=== PATIENT | female | born 1975 ===

== ENCOUNTER 2017-11-01 11:30 | Emergency (ER) | payer OTHER, SELFPAY ==
[2017-11-01 11:39] VITALS: O2SAT 98
[2017-11-01 11:42] VITALS: BP 143/80; PULSE 65; RESP 16; TEMP 98.6
[2017-11-01] MEDS ORDERED: Sodium Chloride 0.9% 1,000 ML IV STA (11:53)
--- NOTE | 2017-11-01 12:02 | ED PDOC ---
HPI: Abdomen Time Seen by Provider: 11/01/17 11:40 Chief Complaint (Nursing): Abdominal Pain Chief Complaint (Provider): abdominal pain History Per: Patient History/Exam Limitations: no limitations Onset/Duration Of Symptoms: Days (2x) Current Symptoms Are (Timing): Still Present Location Of Pain/Discomfort: LLQ Quality Of Discomfort: "Pain" Associated Symptoms: Nausea, Loss Of Appetite, Back Pain. denies: Vomiting, Diarrhea, Chest Pain, Urinary Symptoms Additional Complaint(s): 42 year old female presents to the ED complaining of left lower quadrant pain onset Thursday. The pain is radiating to her midback with associated symptoms of nausea, headache, and loss of appetite today morning. However she ate well last night. States her last menstrual period was around October 13. Denies vaginal bleeding, vaginal discharge, diarrhea, vomiting, chest pain, and shortness of breath. PMD: No Family Provider Abnormal Vaginal Bleeding: No Past Medical History Reviewed: Historical Data, Nursing Documentation, Vital Signs Vital Signs: Last Vital Signs Temp 98.6 F 11/01/17 11:42 Pulse 65 11/01/17 11:42 Resp 16 11/01/17 11:42 BP 143/80 11/01/17 11:42 Pulse Ox 98 11/01/17 13:34 - Medical History PMH: No Chronic Diseases - Surgical History Surgical History: Cholecystectomy, - Family History Family History: States: Other Other Family History: mother has arrhythmia - Social History Current smoker - smoking cessation education provided: No Alcohol: None Drugs: Denies - Home Medications Home Medications: Ambulatory Orders Medication Instructions Recorded Acetaminophen with Codeine 1 each PO Q6H PRN #15 tablet 03/01/16 [Acetaminophen-Cod #3 Tablet] traMADol [Ultram] 50 mg PO TID PRN #10 tab 11/01/17 - Allergies Allergies/Adverse Reactions: Allergies Allergy/AdvReac Type Severity Reaction Status Date / Time ibuprofen Allergy RASH Verified 11/01/17 11:37 Review of Systems ROS Statement: Except As Marked, All Systems Reviewed And Found Negative Constitutional: Negative for: Fever, Chills Cardiovascular: Negative for: Chest Pain Respiratory: Negative for: Shortness of Breath Gastrointestinal: Positive for: Nausea, Abdominal Pain (left lower quadrant). Negative for: Vomiting, Diarrhea Genitourinary Female: Negative for: Vaginal Discharge, Vaginal Bleeding Neurological: Positive for: Headache Physical Exam - Reviewed Nursing Documentation Reviewed: Yes Vital Signs Reviewed: Yes - Physical Exam Appears: Positive for: Non-toxic, No Acute Distress Head Exam: Positive for: ATRAUMATIC, NORMAL INSPECTION, NORMOCEPHALIC Skin: Positive for: Normal Color, Warm, Dry Eye Exam: Positive for: EOMI, Normal appearance, PERRL ENT: Positive for: Normal ENT Inspection Neck: Positive for: Normal, Painless ROM, Supple. Negative for: Decreased ROM Cardiovascular/Chest: Positive for: Regular Rate, Rhythm. Negative for: Murmur Respiratory: Positive for: Normal Breath Sounds. 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 Negative for: Tenderness, Pedal Edema, Deformity Neurologic/Psych: Positive for: Alert, Oriented (x3), Gait (steady). 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 Patient presented normal external genitals. Normal appearing cervix, fluid in vaginal wall. Uteral wall tenderness and bilateral adnexa tenderness. Proceed with pelvic ultrasound Scribe Attestation: Documented by Johan Meng, acting as a scribe for Kisha Sofia MD Provider Scribe Attestation: All medical record entries made by the Scribe were at my direction and personally dictated by me. I have reviewed the chart and agree that the record accurately reflects my personal performance of the history, physical exam, medical decision making, and the department course for this patient. I have also personally directed, reviewed, and agree with the discharge instructions and disposition. Disposition - Clinical Impression Clinical Impression: Ovarian cyst, left - Patient ED Disposition Is Patient to be Admitted: No Doctor Will See Patient In The: Office Counseled Patient/Family Regarding: Diagnosis, Need For Followup, Rx Given - Disposition [facility]errals: [facility]Outside] [facility] [[facility] Disposition: Routine/Home Disposition Time: 15:04 Condition: STABLE Prescriptions: traMADol [Ultram] 50 mg PO TID PRN #10 tab PRN Reason: breakthrough Instructions: Ovarian Cysts Forms: [employer] (Argentine) Print Language: EQUATORIAL GUINEAN - POA Present On Arrival: None
[2017-11-01 12:29] LABS: ALB/GLOB RATIO 1.2 (1.0-2.1); ALBUMIN 4.2 g/dL (3.5-5.0); ALT/SGPT 47 U/L (9-52); AST/SGOT 31 U/L (14-36); BLOOD UREA NITROGEN 12 mg/dl (7-17); CALCIUM 9.1 mg/dL (8.4-10.2); GFR AFRICAN-AMERICAN > 60; GFR NON-AFRICAN AMERICAN > 60; LIPASE 84 U/L (23-300)
[2017-11-01 12:33] LABS: BASO # 0.1 K/uL (0.0-0.2); BASO % 0.9 % (0.0-2.0); EOS # 0.3 K/uL (0.0-0.7); EOS % 4.7 % (0.0-4.0); LYMPH # 2.2 K/uL (1.0-4.3); LYMPH % 31.4 % (20.0-40.0); MEAN CORPUSCULAR HEMOGLOBIN 25.7 pg (27.0-31.0); MEAN CORPUSCULAR HGB CONC 32.5 g/dL (33.0-37.0); MONO # 0.5 K/uL (0.0-0.8); MONO % 6.4 % (0.0-10.0); NEUT % 56.6 % (50.0-75.0); NRBC % 0.1 % (0.0-0.0); RBC 4.28 Mil/uL (3.80-5.20); RED CELL DISTRIBUTION WIDTH 16.9 % (11.5-14.5); WHITE BLOOD COUNT 7.1 K/uL (4.8-10.8)
[2017-11-01 12:36] LABS: MEAN CELL VOLUME 79.3 fl (81.0-99.0)
--- NOTE | 2017-11-01 14:44 | US ---
HISTORY: pelvic pain, tenderness bilateral COMPARISON: None available. TECHNIQUE: Transabdominal pelvic ultrasound was performed. FINDINGS: UTERUS: Measures 12.0 x 5.0 x 5.0 cm. Anteverted, normal in size and appearance. No fibroid or other mass lesion seen. ENDOMETRIUM: Measures 3.6 mm in diameter. Normal appearance of the central endometrial echo complex. CERVIX: No cervical abnormality identified. RIGHT OVARY: Measures 5.0 x 1.8 x 2.9 cm. No solid mass. Normal flow. LEFT OVARY: Measures 7.4 x 5.3 x 6.0 cm. No solid mass. Normal flow. There is a 4.2 x 4.2 x 3.5 cm simple cyst. FREE FLUID: No significant free fluid noted. OTHER FINDINGS: None. IMPRESSION: 4.2 cm simple cyst in the left ovary. No evidence of ovarian torsion. Follow-up ultrasound in 3-6 month interval is recommended to assess stability/resolution. Unremarkable pelvic ultrasound.
== END 2017-11-01 15:25 | disposition home or self-care (01) ==
LOC: H.ER 11:30
DX: N83.202 Unspecified ovarian cyst, left side (principal)
CPT/HCPCS: 76856; 80053; 81025; 83690; 85025; 87070; 87491; 87591; 96360; 99283; J7040

== ENCOUNTER 2018-01-02 06:31 | Emergency (ER) | payer SELFPAY ==
--- NOTE | 2018-01-02 07:23 | ED PDOC ---
Upper Extremity Pain/Injury Time Seen by Provider: 01/02/18 07:15 Chief Complaint (Nursing): Upper Extremity Problem/Injury History Per: Patient Onset/Duration Of Symptoms: Days (4) Current Symptoms Are (Timing): Still Present Severity: Moderate Pain Scale Rating Of: 4 Exacerbating Factor(s): Movement Additional Complaint(s): Right shoulder pain x 4 days. No h/o trauma. Pain worse on movement. No improvement with Tylenol. No weakness or parasthesias. Past Medical History Vital Signs: Last Vital Signs Temp 98.7 F 01/02/18 06:49 Pulse 63 01/02/18 06:49 Resp 16 01/02/18 06:49 BP 107/70 01/02/18 06:49 Pulse Ox 98 01/02/18 06:49 - Medical History PMH: No Chronic Diseases - Surgical History Surgical History: Cholecystectomy, - Family History Family History: States: Unknown Family Hx - Home Medications Home Medications: Ambulatory Orders Medication Instructions Recorded Acetaminophen with Codeine 1 each PO Q6H PRN #15 tablet 03/01/16 [Acetaminophen-Cod #3 Tablet] traMADol [Ultram] 50 mg PO TID PRN #10 tab 11/01/17 traMADol [Ultram] 50 mg PO Q8 #10 tab 01/02/18 - Allergies Allergies/Adverse Reactions: Allergies Allergy/AdvReac Type Severity Reaction Status Date / Time ibuprofen Allergy RASH Verified 11/01/17 11:37 Review of Systems Constitutional: Negative for: Fever Musculoskeletal: Positive for: Shoulder Pain Neurological: Negative for: Weakness, Numbness Physical Exam - Physical Exam Appears: Positive for: Non-toxic, No Acute Distress Skin: Positive for: Normal Color, Warm, DRY Pulses-Radial (R): 2+ Extremity: Positive for: Normal ROM, Tenderness (Right lateral deltoid). Negative for: Deformity Neurologic/Psych: Positive for: Alert, Oriented. Negative for: Motor/Sensory Deficits - ECG O2 Sat by Pulse Oximetry: 98 Disposition - Clinical Impression Clinical Impression: Bursitis - Patient ED Disposition Is Patient to be Admitted: No Counseled Patient/Family Regarding: Studies Performed, Diagnosis, Need For Followup, Rx Given - Disposition Referrals: [facility] [Outside] Disposition: Routine/Home Disposition Time: 07:52 Condition: FAIR Prescriptions: traMADol [Ultram] 50 mg PO Q8 #10 tab Instructions: Bursitis Forms: [employer] (Nepalese) Print Language: GREEK
[2018-01-02 09:10] VITALS: BP 118/76; PULSE 76; RESP 18; TEMP 97.8; O2SAT 100
--- NOTE | 2018-01-02 10:22 | RAD ---
PROCEDURE: Radiographs of the Right Shoulder HISTORY: pain COMPARISON: No prior. FINDINGS: BONES: No definite acute fracture or destructive bony lesion evident. Soft tissue calcifications posterior lateral to the right humeral head likely reflects calcific tendinosis. JOINTS: Normal. Glenohumeral and acromioclavicular joints preserved. No osteoarthritis. SOFT TISSUES: Normal. OTHER FINDINGS: None. IMPRESSION: Calcific tendinosis changes are suggested posterior lateral to the right humeral head. No acute fracture dislocation. Follow-up MRI may be useful for further characterization.
== END 2018-01-02 09:10 | disposition home or self-care (01) ==
LOC: H.ER 06:31
DX: M75.51 Bursitis of right shoulder (principal)

== ENCOUNTER 2018-11-23 09:23 | Emergency (ER) | payer OTHER, SELFPAY ==
[2018-11-23 09:31] VITALS: RESP 14
[2018-11-23 09:32] VITALS: BMI 24.4
--- NOTE | 2018-11-23 10:34 | ED PDOC ---
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 Patient was recently evaluated by her business intelligence manager and had an US on 10/30 which indicated a 5cm cyst on her left adnexa. Patient is scheduled for a follow up visit next week, however patient states she was instructed to come to ER if pain worsens or continues to be present. She reports constant abdominal discomfort but denies any associated fever, vomiting, diarrhea, constipation, vaginal bleeding or discharge. DIRECTOR OF STRATEGY & MOBILE: Dr. Espinoza Past Medical History Reviewed: Historical Data, Nursing Documentation, Vital Signs Vital Signs: Last Vital Signs Temp 98.4 F 11/23/18 09:30 Pulse 76 11/23/18 09:30 Resp 14 11/23/18 09:30 BP 107/64 11/23/18 09:30 Pulse Ox 98 11/23/18 09:30 - Medical History PMH: No Chronic Diseases Denies: Chronic Kidney Disease - Surgical History Surgical History: Cholecystectomy, - Family History Family History: States: Unknown Family Hx - Immunization History Hx Tetanus Toxoid Vaccination: No Hx Influenza Vaccination: No Hx Pneumococcal Vaccination: No - Home Medications Home Medications: Ambulatory Orders Medication Instructions Recorded Acetaminophen with Codeine 1 each PO Q6H PRN #15 tablet 03/01/16 [Acetaminophen-Cod #3 Tablet] traMADol [Ultram] 50 mg PO TID PRN #10 tab 11/01/17 traMADol [Ultram] 50 mg PO Q8 #10 tab 01/02/18 Acetaminophen [Tylenol Extra 500 mg PO Q4 #30 tablet 11/23/18 Strength] - Allergies Allergies/Adverse Reactions: Allergies Allergy/AdvReac Type Severity Reaction Status Date / Time ibuprofen Allergy RASH Verified 11/01/17 11:37 Review of Systems ROS Statement: Except As Marked, All Systems Reviewed And Found Negative Constitutional: Negative for: Fever, Chills Gastrointestinal: Positive for: Abdominal Pain. Negative for: Diarrhea Genitourinary Female: Negative for: Vaginal Discharge, Vaginal Bleeding Physical Exam - Reviewed Nursing Documentation Reviewed: Yes Vital Signs Reviewed: Yes - Physical Exam Appears: Positive for: Non-toxic, No Acute Distress Head Exam: Positive for: ATRAUMATIC, NORMAL INSPECTION, NORMOCEPHALIC Skin: Positive for: Normal Color Eye Exam: Positive for: Normal appearance, EOMI, PERRL Neck: Positive for: Supple Cardiovascular/Chest: Positive for: Regular Rate, Rhythm. Negative for: Tachycardia Respiratory: Positive for: Normal Breath Sounds. Negative for: Respiratory Distress Gastrointestinal/Abdominal: Positive for: Normal Exam, Soft. Negative for: Tenderness, Mass, Guarding, Rebound Back: Positive for: Normal Inspection Extremity: Positive for: Normal ROM. Negative for: Pedal Edema Neurological/Psych: Positive for: Awake, Alert, Normal Tone - ECG O2 Sat by Pulse Oximetry: 98 (RA) Pulse Ox Interpretation: Normal Medical Decision Making Medical Decision Makinyo with abdominal discomfort Case discussed with Dr. Espinoza who states patient can be discharged home and no additional imaging study is needed at this time. She states a nurse from her office will call the patient to schedule follow up visit in the next couple days. Plan for discharge and follow up discussed with patient, who is agreeable Vital signs are stable, patient given prescription for Motrin. Stable for discharge home. ScribeAttestation: Documented byTiffany Martell, acting as a scribe for Florence Patiño MD. Provider ScribeAttestation: All medical record entries made by the Scribe were at my direction and personally dictated by me. I have reviewed the chart and agree that the record accurately reflects my personal performance of the history, physical exam, medical decision making, and the department course for this patient. I have also personally directed, reviewed, and agree with the discharge instructions and disposition. Disposition - Clinical Impression Clinical Impression: Ovarian cyst, left, Abdominal discomfort - Disposition Referrals: Hunter Espinoza MD [Staff Provider] - Disposition Time: 10:38 Condition: STABLE Additional Instructions: You will be contacted by a nurse from Dr. Pereira's office to schedule a follow up visit. Take Motrin every 6 hours if needed for pain. Prescriptions: Acetaminophen [Tylenol Extra Strength] 500 mg PO Q4 #30 tablet Instructions: Ovarian Cysts Forms: [employer] (Angolan)
[2018-11-23 10:56] VITALS: BP 100/72; PULSE 56; TEMP 98
[2018-11-23 17:51] VITALS: O2SAT 98
== END 2018-11-23 10:38 | disposition home or self-care (01) ==
LOC: H.ER 09:23
DX: N83.202 Unspecified ovarian cyst, left side (principal); R10.9 Unspecified abdominal pain